=== PATIENT | male | born 1950 | race Caucasian/White ===

== ENCOUNTER 2019-06-02 10:42 | Outpatient (RCR) | payer MEDICARE, OTHER, SELFPAY | END 2019-06-03 12:00 | LOC: CAR 10:42 | PROVIDERS: PCP Family Medicine; Visit Provider Internal Medicine Interventional Cardiology | DX: I20.9 Angina pectoris, unspecified (principal) | CPT/HCPCS: 93798 ==

== ENCOUNTER → 2019-08-10 15:24 | Outpatient (CLI) | payer MEDICARE, OTHER, SELFPAY ==
--- NOTE | 2019-08-10 | DI.MRI.S_ITS ---
PROCEDURE: MR CERVICAL SPINE WO CON INDICATIONS: Cervicalgia TECHNIQUE: Noncontrast sagittal T1 spin echo and T2 fast spin echo, sagittal STIR, foraminal oblique sagittal T2 fast spin echo, and axial gradient echo or T2 fast spin echo through the cervical spine. COMPARISON: None. FINDINGS: Image quality: Excellent. Alignment and Curvature: There is normal bony alignment. Bone Marrow: Marrow demonstrates normal overall signal. Spinal Cord: Visualized spinal cord has normal size and signal. No cerebellar tonsillar herniation. Paraspinous Soft Tissues: No paravertebral masses. Prevertebral soft tissues are normal in thickness. C2-C3: The disc height is well-preserved. Loss of disc signal is seen at this level. Mild to moderate disc osteophyte complex is seen. Moderate facet hypertrophy is seen, right worse than left. There is moderate to severe bilateral neural foraminal narrowing seen, right worse than left. Mild to moderate central canal narrowing is seen. C3-C4: The disc height is well-preserved. Loss of disc signal is seen at this level. At least moderate disc osteophyte complex is seen. Uncovertebral joint hypertrophy is seen at this level. Moderate facet hypertrophy is seen, right worse than left. Moderate to severe bilateral neural foraminal narrowing is seen, right worse than left. There is at least moderate central canal narrowing seen, with associated mass effect upon the ventral spinal cord, as on series 3 image 18. C4-C5: Moderate loss of disc height is seen. Loss of disc signal is seen. At least moderate disc osteophyte complex is seen. Uncovertebral joint hypertrophy is seen at this level. There is a central/left disc osteophyte protrusion, as on series 3 image 23. At least moderate facet hypertrophy is seen. Moderate to severe bilateral neural foraminal narrowing is seen. Moderate to severe central canal narrowing is seen, with associated mass effect upon the ventral spinal cord. C5-C6: Mild to moderate loss of disc height and disc signal are seen. At least moderate disc osteophyte complex is seen. Uncovertebral joint hypertrophy is seen at this level. Moderate to severe bilateral neural foraminal narrowing is seen. Moderate central canal narrowing is seen. There is minimal associated mass effect upon the ventral spinal cord. C6-C7: At least moderate loss of disc height and disc signal are seen. Moderate to prominent disc osteophyte complex is seen. Uncovertebral joint hypertrophy is seen at this level. At least moderate right-sided and moderate to severe left-sided neural foraminal narrowing can be seen. Mild to moderate central canal narrowing is seen. C7-T1: Moderate loss of disc height is seen. Loss of disc signal is seen. Moderate generalized disc osteophyte complex is seen. There is at least moderate bilateral neural foraminal narrowing seen, left worse than right. Mild central canal narrowing is seen. IMPRESSION: Multiple levels of cervical spine degenerative change are seen, which are overall most prominent at the C4-C5 level, where there is moderate to severe central canal narrowing and moderate to severe bilateral neural foraminal narrowing present. Dictated by: Sergio Mckenzie M.D. on 08/10/2019 at 16:11 Approved by: Sergio Mckenzie M.D. on 08/10/2019 at 16:15
== END ==
PROVIDERS: PCP Family Medicine; Visit Provider Family Medicine
DX: M54.2 Cervicalgia (principal); M47.22 Other spondylosis with radiculopathy, cervical region; M48.02 Spinal stenosis, cervical region
CPT/HCPCS: 72141

== ENCOUNTER → 2021-01-26 11:20 | Outpatient (CLI) | payer MEDICARE, OTHER, SELFPAY ==
[2021-01-27 00:05] LABS: Testosterone 9.66 ng/dL (71.8-623)
== END ==
PROVIDERS: PCP Family Medicine; Referring Provider Radiology Radiation Oncology; Visit Provider Radiology Radiation Oncology
DX: C61 Malignant neoplasm of prostate (principal)
CPT/HCPCS: 36415; 84403

== ENCOUNTER → 2021-09-07 08:20 | Outpatient (CLI) | payer MEDICARE, OTHER, SELFPAY ==
[2021-09-07 20:19] LABS: COVID19 - ORCAS (NP or Nasal) Negative (Negative)
== END ==
PROVIDERS: PCP Family Medicine; Referring Provider Family Medicine; Visit Provider Family Medicine
DX: Z20.822 Contact with and (suspected) exposure to COVID-19 (principal)
CPT/HCPCS: C9803; U0003

== ENCOUNTER → 2021-11-14 09:32 | Outpatient (CLI) | payer MEDICARE, OTHER, SELFPAY ==
[2021-11-14 22:08] LABS: COVID19 - ORCAS (NP or Nasal) POSITIVE (Negative)
== END ==
PROVIDERS: PCP Family Medicine; Visit Provider Family Medicine
DX: U07.1 COVID-19 (principal); Z20.822 Contact with and (suspected) exposure to COVID-19
CPT/HCPCS: U0003

== ENCOUNTER → 2021-11-15 08:41 | Outpatient (CLI) | payer MEDICARE, OTHER, SELFPAY ==
[2021-11-15 19:24] LABS: COVID19 - ORCAS (NP or Nasal) Negative (Negative)
== END ==
PROVIDERS: PCP Family Medicine; Visit Provider Physician Assistant
DX: Z20.822 Contact with and (suspected) exposure to COVID-19 (principal)
CPT/HCPCS: C9803; U0003

== ENCOUNTER → 2021-11-28 08:04 | Outpatient (CLI) | payer MEDICARE, OTHER, SELFPAY ==
[2021-11-28 19:39] LABS: COVID19 - ORCAS (NP or Nasal) Negative (Negative)
== END ==
PROVIDERS: PCP Family Medicine; Visit Provider Family Medicine
DX: Z20.822 Contact with and (suspected) exposure to COVID-19 (principal)
CPT/HCPCS: C9803; U0003

== ENCOUNTER → 2022-06-15 11:26 | Outpatient (CLI) | payer MEDICARE, OTHER, SELFPAY ==
--- NOTE | 2022-06-15 | DI.US.S_ITS ---
PROCEDURE: US RENAL COMPLETE INDICATIONS: HISTORY OF URINARY AND KIDNEY CALCULI TECHNIQUE: Real-time scanning was performed of the kidneys and bladder, with image documentation. COMPARISON: None. FINDINGS: Kidneys: Kidneys are normal in size. Right kidney measures 11.0 cm long; left kidney measures 12.3 cm long. Right renal cortical thickness is 1.3 cm; left renal cortical thickness is 1.8 cm. Renal cortical echotexture is normal. No hydronephrosis or nephrolithiasis. Small right pararenal cysts are noted. No suspicious solid mass lesions. Bladder: Prevoid bladder volume not measured. On pre-void images, neither ureteral jets are noted with color Doppler interrogation. (Of note, ureteral jets may not be detectable in up to 25% of cases due to insufficient differences in specific gravity between ureteral and bladder urine). The reservoir for a penile prosthesis is noted within the right hemipelvis. Miscellaneous: No free pelvic fluid. IMPRESSION: 1. No hydronephrosis. Dictated by: Esther Tang M.D. on 06/15/2022 at 13:36 Approved by: Esther Tang M.D. on 06/15/2022 at 13:37
--- NOTE | 2022-06-15 | DI.CT.S_ITS ---
PROCEDURE: CT KIDNEY URETER BLADDER (KUB) INDICATIONS: HISTORY OF URINARY AND KIDNEY CALCULI TECHNIQUE: Axial sections were acquired from the lung bases to the pubic symphysis. Coronal and sagittal reformats were performed. For radiation dose reduction, the following was used: automated exposure control, adjustment of mA and/or kV according to patient size. COMPARISON: [facility], US, US RENAL COMPLETE, 06/15/2022, 11:42. [facility], CT, ABD/PELVIS W&WO CON ([facility]), 08/06/2014, 11:35. FINDINGS: Image quality: Excellent. Lung bases: Unremarkable. Heart: No significant findings. URINARY: Right Kidney: Normal size. There are small low-density pararenal cysts. No nephrolithiasis. No hydronephrosis. Right Ureter: No hydroureter. Left Kidney: Nonobstructing 2 mm calculus in the lower pole. No hydronephrosis. Left Ureter: No hydroureter. Bladder: Normal wall thickness. No stones. ABDOMEN: Liver: Normal size. Punctate calcifications are noted. Gallbladder: Contracted. Biliary ducts: Unremarkable. Pancreas: Unremarkable. Spleen: Normal size. Punctate calcifications are noted. Adrenal Glands: Unremarkable. Stomach and Bowel: Stomach, small bowel loops, and colon are unremarkable. There are scattered sigmoid diverticula. No evidence for diverticulitis. The appendix is not visualized; however there is no discrete right lower quadrant fluid or fat stranding to suggest acute appendicitis. Peritoneum: No abnormal intraperitoneal fluid. No free air. Ventral Wall: No hernia. Abdominal Nodes: No enlarged retroperitoneal or mesenteric lymph nodes. Vessels: Aorta and inferior vena cava are normal in size. There are scattered atheromatous calcifications throughout the aorta and iliac arteries bilaterally. PELVIS: Pelvic Organs: Unremarkable. Pelvic Nodes: Unremarkable. Miscellaneous: There is a small fat containing left inguinal hernia. A penile prosthesis pump is noted within the pelvis. Bones: Unremarkable. IMPRESSION: 1. Nonobstructing left nephrolithiasis. No hydronephrosis, hydroureter, or ureterolithiasis. Pararenal cysts in the right kidney noted. 2. No acute intra-abdominal findings. Mild diverticulosis. No acute diverticulitis. Dictated by: Esther Tang M.D. on 06/15/2022 at 13:30 Approved by: Esther Tang M.D. on 06/15/2022 at 13:35
== END ==
PROVIDERS: Family Provider Orthopaedic Surgery; PCP Family Medicine; Referring Provider Family Medicine; Visit Provider Family Medicine
DX: N20.0 Calculus of kidney (principal); N28.1 Cyst of kidney, acquired; K57.30 Diverticulosis of large intestine without perforation or abscess without bleeding; Z87.442 Personal history of urinary calculi
CPT/HCPCS: 74176; 76770

== ENCOUNTER → 2022-11-21 09:44 | Outpatient (CLI) | payer MEDICARE, OTHER, SELFPAY ==
--- NOTE | 2022-11-21 09:50 | DI.RAD.S_ITS ---
PROCEDURE: XR CHEST 2V INDICATIONS: SOB TECHNIQUE: 2 views of the chest were acquired. COMPARISON: None. FINDINGS: Surgical changes and devices: Left shoulder arthroplasty. Lungs and pleura: Lungs are clear. No pleural effusions or pneumothorax. Mediastinum: Mediastinal contours are normal. Heart size is normal. Bones and chest wall: No suspicious bony abnormalities. Soft tissues appear unremarkable. IMPRESSION: No acute process. Dictated by: Tremaine Pack M.D. on 11/21/2022 at 10:20 Transcribed by: DULCE on 11/21/2022 at 10:21 Approved by: Tremaine Pack M.D. on 11/21/2022 at 15:54
== END ==
PROVIDERS: Family Provider Orthopaedic Surgery; PCP Family Medicine; Referring Provider Internal Medicine Pulmonary Disease; Visit Provider Internal Medicine Pulmonary Disease
DX: R06.02 Shortness of breath (principal)
CPT/HCPCS: 71046

== ENCOUNTER → 2023-03-12 10:34 | Outpatient (CLI) | payer MEDICARE, OTHER, SELFPAY ==
--- NOTE | 2023-03-12 | DI.MRI.S_ITS ---
PROCEDURE: MR SHOULDER RT W CON INDICATIONS: RIGHT SHOULDER PAIN TECHNIQUE: After the administration of 12 mL of dilute intra-articular Gadolinium contrast, oblique coronal T1 and T2 spin echo with fat saturation, oblique sagittal T1 spin echo with and without fat saturation, oblique sagittal T2 fast spin echo with fat saturation, axial T1 spin echo with fat saturation through the shoulder. COMPARISON: None. FINDINGS: Image quality: Excellent. Rotator cuff: There is prior rotator cuff tendon repair with postsurgical changes and susceptibility artifacts along superior and lateral shoulder soft tissue. Low-grade articular and bursal surface partial thickness tear involving distal supraspinatus and infraspinatus at their insertion on the humeral head is seen extending to musculotendinous junction. Tendinosis and low-grade intrasubstance partial-thickness tear involving distal subscapularis is seen. No full-thickness rotator cuff tendon rupture. No significant rotator cuff muscle atrophy on sagittal images. Bones and bursae: There is expected postsurgical widening of acromioclavicular joint. Postsurgical changes also seen in lateral aspect of humeral head. No gross marrow edema. No acute fracture or dislocation. Capsule and soft tissues: Signal abnormality, contour irregularity and contrast extension in superior anterior labrum at 12 to 2 o'clock position is seen suggestive of superior anterior labral tear. The long head of the biceps tendon demonstrates normal location and morphology. The rotator interval appears normal, without fibrosis. The coracohumeral ligament is of normal thickness. No intra-articular bodies. IMPRESSION: 1. Postsurgical changes from prior rotator cuff tendon repair and expected postsurgical widening of acromioclavicular joint. No acute fracture or dislocation. No suspicious bony lesions. Moderate glenohumeral joint osteoarthritis. No gross intra-articular loose bodies. 2. Low to moderate grade articular and bursal surface partial thickness tear involving distal supraspinatus and infraspinatus extending to musculotendinous junction. Low-grade intrasubstance partial-thickness tear involving distal subscapularis. No full-thickness rotator cuff tendon rupture. No significant rotator cuff muscle atrophy. 3. Suggestion of superior anterior labral tear at 12 to 2 o'clock position. Dictated by: Layton Ng M.D. on 03/12/2023 at 14:26 Approved by: Layton Ng M.D. on 03/12/2023 at 15:03
--- NOTE | 2023-03-12 | DI.RAD.S_ITS ---
PROCEDURE: FL SHOULDER INJECTION MR/CT RT INDICATIONS: RIGHT SHOULDER PAIN COMPARISON: [facility], MR, SHOULDER WITHOUT CONTRAST, 09/15/2014, 10:51. [facility] ([facility]), CR, XR LUMBAR SPINE 2-3V, 01/04/2023, 12:08. [facility], MR, MR SHOULDER RT W CON, 03/12/2023, 11:39. TECHNIQUE: The indications, alternatives, benefits, risks, and complications of the procedure were explained to the patient. Written informed consent was obtained and placed in the chart. The shoulder was examined fluoroscopically and a site for needle placement chosen for entry into the glenohumeral joint from an anterior approach. The skin was prepped and draped in a sterile fashion, and 1% lidocaine infiltrated from skin down to joint capsule. A spinal needle was inserted into the glenohumeral joint, and a small amount of iodinated contrast media injected to confirm intra-articular placement of the needle tip. This was followed by approximately 12 mL dilute solution of a gadolinium containing MR contrast agent. The needle was removed and a dressing was applied. The patient was given postprocedural instructions and sent to the MR suite for MR imaging. FINDINGS: A single fluoroscopic spot image demonstrates intra-articular location of injected iodinated contrast. IMPRESSION: Successful fluoroscopically guided administration of dilute Gadolinium solution into the shoulder joint for MR arthrogram. Dictated by: Ines Moody M.D. on 03/12/2023 at 13:55 Approved by: Ines Moody M.D. on 03/12/2023 at 13:56
== END ==
PROVIDERS: Family Provider Orthopaedic Surgery; PCP Family Medicine; Referring Provider Orthopaedic Surgery; Visit Provider Orthopaedic Surgery
DX: M75.111 Incomplete rotator cuff tear or rupture of right shoulder, not specified as traumatic (principal); M19.011 Primary osteoarthritis, right shoulder; M25.511 Pain in right shoulder; Z98.890 Other specified postprocedural states
CPT/HCPCS: 23350; 73222; 77002

== ENCOUNTER → 2023-05-31 09:50 | Outpatient (CLI) | payer MEDICARE, OTHER, SELFPAY ==
--- NOTE | 2023-05-31 | DI.MRI.S_ITS ---
PROCEDURE: MR PELVIS WO CON INDICATIONS: SACRUM TECHNIQUE: Noncontrast axial and oblique coronal T1 spin echo and STIR through the sacrum and sacroiliac joints. COMPARISON: [facility] ([facility]), CR, XR SACRUM COCCYX MIN 2V, 01/04/2023, 12:08. FINDINGS: Image quality: Excellent. Bones: Mild bilateral sacroiliac joint osteoarthritic changes are seen. No gross bony erosive changes or ankylosis is seen in bilateral sacroiliac joints. Abnormal heterogeneously T2 hyperintense and T1 hypointense signal involving anterior aspect of left sacrum at S1 level measures up to 2.1 x 2.9 x 2.4 cm in size series 4, image 14 and series 6, image 14. Similar area of signal abnormality involving anterior aspect of right sacrum measures 1.8 x 1.6 x 2.2 cm in size is also seen series 4 image 14 and series 6, image 15. No adjacent cortical disruption or surrounded soft tissue edema is seen. No definite involvement of adjacent sacroiliac joint is seen. Subtle ill-defined area of signal abnormality involving left iliac bone is also noted measures up to 1.3 x 0.9 x 1.3 cm in size series 4, image 15 and series 6, image 18. No other area of abnormal marrow signal is seen. Soft tissues: No presacral masses. Rectum appears normal in caliber and wall thickness. No pathologic free pelvic fluid. IMPRESSION: 1. Well-circumscribed area of heterogeneously T2 hyperintense signal and T1 hypointense involving bilateral sacrum as described above. Given patient's history of fairly recent trauma, finding may represent sequela from healing insufficiency fractures in these areas. Benign or malignant neoplastic process cannot be entirely excluded. Consider CT of pelvis follow-up. 2. No associated soft tissue mass. No pelvic free fluid. 3. Bilateral sacroiliac joint osteoarthritis. No gross bony erosion or ankylosis is seen. Dictated by: Layton Ng M.D. on 05/31/2023 at 14:05 Approved by: Layton Ng M.D. on 05/31/2023 at 14:43
--- NOTE | 2023-05-31 | DI.MRI.S_ITS ---
PROCEDURE: MR ORBITS FACE NECK WO/W CON INDICATIONS: BILAT EYE NERVE PALSY TECHNIQUE: Noncontrast sagittal T1 spin echo, axial FLAIR, axial gradient echo, axial diffusion and ADC acquired through the brain. Coronal STIR, thin-slice axial T1 spin echo through the orbits. After the administration of contrast, thin-slice axial and coronal T1 spin echo with fat saturation through the orbits, axial and coronal and sagittal T1 spin echo with fat saturation through the brain. COMPARISON: None. FINDINGS: Image quality: Diagnostic, with note made of motion artifact. Orbits: Globes are symmetrical. Note is made of bilateral lens replacements.The optic nerves are normal in size, without abnormal signal or enhancement. No retrobulbar masses or fat abnormalities. The extra-ocular muscles are normal and symmetric in appearance. Lacrimal glands are normal. Optic chiasm is normal. Periorbital soft tissues appear normal. CSF spaces: Ventricles are normal in size and shape. Basal cisterns are patent. No extra-axial fluid collections. Brain: In this patient with this given history, scrutiny is given to masses involving the skull base. No masses or abnormal enhancement are seen. No intracranial bleeds or mass effects. No abnormal intracranial enhancement. Ceballos-white matter interface is intact. Diffusion weighted images demonstrate no acute ischemic insults. Pituitary gland appears normal, without sellar or suprasellar masses. Brainstem appears normal. Normal intravascular flow voids are present. Skull and face: Calvarial marrow is normal in signal. Sinuses: There is moderate mucosal thickening within the right maxillary sinuses. Mild mucosal thickening can be seen elsewhere within the paranasal sinuses. IMPRESSION: No imaging explanation is found for this patient's presenting symptoms. Normal appearing orbits, without masses or abnormal enhancement. No skull base masses or abnormal enhancement can be seen. No findings of acute or subacute infarction can be seen. Dictated by: Sergio Mckenzie M.D. on 05/31/2023 at 15:50 Approved by: Sergio Mckenzie M.D. on 05/31/2023 at 15:52
--- NOTE | 2023-05-31 | DI.MRI.S_ITS ---
PROCEDURE: MR LUMBAR SPINE WO CON INDICATIONS: Prior trauma with pain and radiculopathy TECHNIQUE: Noncontrast sagittal T1 spin echo and T2 fast echo, sagittal STIR, and T2 fast spin echo through the lumbar spine. In cases with scoliosis, additional coronal T2 fast spin echo may be performed. COMPARISON: [facility], CT, ABD/PELVIS W&WO CON ([facility]), 08/06/2014, 11:35. [facility], MR, MR ORBITS FACE NECK WO/W CON, 05/31/2023, 12:28. [facility] ([place]), CR, XR LUMBAR SPINE 2-3V, 01/04/2023, 12:08. FINDINGS: Image quality: Diagnostic, with note made of motion artifact. Alignment and Curvature: There is normal bony alignment. Bone Marrow: Marrow is of normal overall signal. No acute vertebral body compression fractures. Minimal anterior wedge deformity can be seen involving L1, with approximately 10% loss of height anteriorly. Spinal Cord: Conus medullaris terminates at the L1 level. Visualized cord demonstrates normal signal and size. Paraspinous Soft Tissues: No paravertebral masses. T12-L1: Moderate to severe loss of disc height and disc signal can be seen. Reactive marrow endplate changes are seen, which are hyperintense on T1-weighted and T2-weighted imaging and most consistent with fatty metaplasia (Modic type II changes). Moderate generalized disc bulge is seen. Partially bridging endplate osteophytes are seen at this level. Posteriorly projected endplate osteophytes are seen. There is at least moderate right-sided and moderate left-sided neural foraminal narrowing. Mild to moderate central canal narrowing is seen. L1-L2: Moderate loss of disc height is seen. Loss of disc signal is seen. Reactive marrow endplate changes are seen posteriorly, which are hyperintense on T1-weighted and T2-weighted imaging and most consistent with fatty metaplasia (Modic type II changes). Moderate disc bulge is seen, which is eccentric to the right. Mild central canal narrowing is seen. There is moderate right-sided and [id number] left-sided neural foraminal narrowing. Mild to moderate central canal narrowing is seen. L2-L3: At least moderate loss of disc height and disc signal can be seen. Moderate generalized disc bulge is seen. There is a superimposed central disc protrusion. Mild facet joint hypertrophy is seen. There is at least moderate left-sided and moderate right-sided neural foraminal narrowing. Moderate central canal narrowing is seen. L3-L4: The disc height is well-preserved. Loss of disc signal is seen at this level. Mild to moderate disc bulge is seen, which is eccentric to the right. Mild to moderate facet hypertrophy is seen. Moderate bilateral neural foraminal narrowing is seen. Moderate central canal narrowing is seen. L4-L5: The disc height is well-preserved. Loss of disc signal is seen at this level. At least moderate disc bulge is seen, which is eccentric to the left. At least moderate facet hypertrophy is seen at this level. There is moderate right-sided and at least moderate left-sided neural foraminal narrowing. There is a degree of compression seen upon the exiting left L4 nerve root. At least moderate central canal narrowing is seen. L5-S1: The disc height is well-preserved. Loss of disc signal is seen at this level. Reactive marrow endplate changes are seen, which are hyperintense on T1-weighted and T2-weighted imaging and most consistent with fatty metaplasia (Modic type II changes). Mild to moderate disc bulge is seen, which is eccentric to the left. Mild to moderate facet hypertrophy is seen at this level. Moderate bilateral neural foraminal narrowing is seen. Mild central canal narrowing is seen. IMPRESSION: No antonio acute abnormality is identified. No acute bony fracture or contusion can be seen. Multiple levels of underlying degenerative change can be seen. Dictated by: Sergio Mckenzie M.D. on 05/31/2023 at 12:42 Approved by: Sergio Mckenzie M.D. on 05/31/2023 at 12:53
== END ==
PROVIDERS: Family Provider Orthopaedic Surgery; PCP Family Medicine; Referring Provider Family Medicine; Visit Provider Family Medicine
DX: H49.11 Fourth [trochlear] nerve palsy, right eye (principal); H49.22 Sixth [abducent] nerve palsy, left eye; M47.26 Other spondylosis with radiculopathy, lumbar region; M47.27 Other spondylosis with radiculopathy, lumbosacral region; M47.28 Other spondylosis with radiculopathy, sacral and sacrococcygeal region
CPT/HCPCS: 70543; 72148; 72195; A9579

== ENCOUNTER → 2024-07-03 10:47 | Outpatient (CLI) | payer MEDICARE, OTHER, SELFPAY ==
--- NOTE | 2024-07-03 10:48 | DI.MRI.S_ITS ---
PROCEDURE: MR CERVICAL SPINE WO CON INDICATIONS: CERVICAL DISC DISORDER W/RADICULOPATHY TECHNIQUE: Noncontrast sagittal T1 spin echo and T2 fast spin echo, sagittal STIR, foraminal oblique sagittal T2 fast spin echo, and axial gradient echo or T2 fast spin echo through the cervical spine. COMPARISON: [facility], MR, MR CERVICAL SPINE WO CON, 08/10/2019, 15:32. FINDINGS: Image quality: Excellent Mild anterolisthesis of C3 on C4, C5 on C6. Vertebral body heights cervical spine is well maintained. No suspicious marrow replacing lesion. Marrow edema of the left C3-4 facet, favoring degenerative . Cord signal: Within normal limits. Right neural foraminal stenosis: Moderate at C2-3, severe at C3-4, C4-5, moderate at C5-6, C6-7. Left neural foraminal stenosis: Mild at C2-3, moderate at C3-4, severe at C4-5, moderate at C5-6, mild at C6 C7. Axial images: C2-3: Moderate right facet arthropathy. No central canal stenosis. C3-4: Posterior disc osteophyte complex. Moderate central canal stenosis. Uncovertebral arthropathy. Severe right and moderate left facet arthropathy. C4-5: Posterior disc osteophyte complex. Mild right, moderate left facet arthropathy. Moderate central canal stenosis. C5-6: Posterior disc uncovering. Uncovertebral arthropathy. Severe left facet arthropathy. Moderate central canal stenosis. C6-7: Posterior disc osteophyte complex. Mild central canal stenosis. C7-T1: Posterior disc osteophyte complex. Mild bilateral facet arthropathy. No central canal stenosis. Other soft tissue findings: Mucous retention cysts in the left maxillary sinus, partially visualized. IMPRESSION: 1. Multilevel degenerative changes of the cervical spine, most pronounced at C3-4, C4-5 and C5-6, where there is moderate central canal stenosis, overall, slightly progressed. 2. Multilevel significant neural foraminal stenosis as described above. Dictated by: Ping Roe M.D. on 07/03/2024 at 14:14 Approved by: Ping Roe M.D. on 07/03/2024 at 14:26
== END ==
LOC: MRI 10:48
PROVIDERS: Family Provider Orthopaedic Surgery; PCP Family Medicine; Referring Provider Family Medicine; Visit Provider Family Medicine
DX: M50.10 Cervical disc disorder with radiculopathy, unspecified cervical region (principal); M47.22 Other spondylosis with radiculopathy, cervical region; M48.02 Spinal stenosis, cervical region
CPT/HCPCS: 72141

== ENCOUNTER → 2024-08-17 10:40 | Outpatient (CLI) | payer MEDICARE, OTHER, SELFPAY | PROVIDERS: Family Provider Orthopaedic Surgery; PCP Family Medicine; Referring Provider Internal Medicine; Visit Provider Internal Medicine | DX: R06.02 Shortness of breath (principal); R94.2 Abnormal results of pulmonary function studies; J45.50 Severe persistent asthma, uncomplicated | CPT/HCPCS: 94060; 94726; 94729 ==

== ENCOUNTER → 2024-09-18 11:26 | Outpatient (CLI) | payer MEDICARE, OTHER, SELFPAY ==
--- NOTE | 2024-09-18 11:28 | DI.RAD.S_ITS ---
PROCEDURE: FL FLUOROSCOPY >1HR COMPARISON: None. INDICATIONS: Sniff test to rule out diaphragm paralysis FINDINGS: Normal and symmetric appearing movement of bilateral hemidiaphragms is seen during normal and deep respiration. Normal depression of bilateral hemidiaphragms during sniffing is also seen. No paradoxical movement of the diaphragm. IMPRESSION: Normal sniff test. No evidence of unilateral diaphragmatic paralysis. Dictated by: Layton Ng M.D. on 09/18/2024 at 14:02 Approved by: Layton Ng M.D. on 09/18/2024 at 14:03
== END ==
LOC: RAD 11:28
PROVIDERS: Family Provider Orthopaedic Surgery; PCP Family Medicine; Referring Provider Internal Medicine; Visit Provider Internal Medicine
DX: J45.50 Severe persistent asthma, uncomplicated (principal); R06.02 Shortness of breath
CPT/HCPCS: 76000